=== PATIENT | male | born 1945 | race African-American/Black ===

== ENCOUNTER 2016-04-10 16:49 | Emergency (ER) | payer BC, MEDICARE ==
[2016-04-10] MEDS ORDERED: HYDROCODONE/ACETAMINOPHEN 5-325 MG TABLET PO ONE (17:40)
--- NOTE | 2016-04-10 17:44 | ER Document Report ---
ED Medical Screen (RME) - General Stated Complaint: FLANK PAIN Mode of Arrival: Ambulatory Information source: Patient Notes: 70-year-old male presents to the emergency department complaining of left flank/ left lower abdominal pain with associated hematuria. Reports history of multiple (approximately 20) kidney stones in the past. Reports associated nausea when pain is at its worse. I have greeted and performed a rapid initial assessment of this patient. A comprehensive ED assessment and evaluation of the patient, analysis of test results and completion of the medical decision making process will be conducted by additional ED providers. - Related Data Allergies/Adverse Reactions: No Known Allergies Allergy (Verified 09/17/11 12:19) Past Medical History - Social History Frequency of alcohol use: None Drug Abuse: None - Past Medical History Cardiac Medical History: Reports: Hx Hypertension - controlled without meds Renal/ Medical History: Reports: Hx Kidney Stones. Denies: Hx Peritoneal Dialysis Past Surgical History: Reports: Hx Kidney (Renal Surgery) - kidney stones removed - Immunizations Hx Diphtheria, Pertussis, Tetanus Vaccination: Yes Physical Exam - Vital signs Vitals: Temp Pulse Resp BP Pulse Ox 98.0 F 72 15 165/86 H 98 04/10/16 17:34 04/10/16 17:34 04/10/16 17:34 04/10/16 17:34 04/10/16 17:34 - General General appearance: Alert In distress: None - Respiratory Respiratory status: No respiratory distress Course - Vital Signs Vital signs: Temp Pulse Resp BP Pulse Ox 98.0 F 72 15 165/86 H 98 04/10/16 17:34 04/10/16 17:34 04/10/16 17:34 04/10/16 17:34 04/10/16 17:34
[2016-04-10 18:05] LABS: APPEARANCE,URINE SLIGHTLY-CLOUDY; BILIRUBIN,URINE NEGATIVE (NEGATIVE); GLUCOSE, URINE NEGATIVE (NEGATIVE); KETONES,URINE NEGATIVE (NEGATIVE); LEUKOCYTE ESTERASE,URINE NEGATIVE (NEGATIVE); NITRITE,URINE NEGATIVE (NEGATIVE); PROTEIN,URINE 30 mg/dL (NEGATIVE); URINE SPECIFIC GRAVITY 1.023; UROBILINOGEN,URINE NEGATIVE mg/dL (<2.0)
[2016-04-10 18:08] LABS: ABSOLUTE EOSINOPHILS # (AUTO) 0.1 10^3/uL (0.0-0.6); ABSOLUTE LYMPHOCYTES (AUTO) 0.5 10^3/uL (0.5-4.7); ABSOLUTE MONOCYTES (AUTO) 0.3 10^3/uL (0.1-1.4); ABSOLUTE NEUT (AUTO) 3.4 10^3/uL (1.7-8.2); BASOPHILS % (AUTO) 0.6 % (0-2); EOSINOPHILS % (AUTO) 2.7 % (0-6); HEMATOCRIT 42.7 % (37.9-51.0); HEMOGLOBIN 13.9 g/dL (13.5-17.0); LYMPHOCYTES % (AUTO) 11.8 % (13-45); MEAN CORPUSCULAR HEMOGLOBIN 28.4 pg (27.0-33.4); MEAN CORPUSCULAR HGB CONC 32.6 g/dL (32.0-36.0); MEAN CORPUSCULAR VOLUME 87 fl (80-97); MONOCYTES % (AUTO) 7.6 % (3-13); RED CELL DISTRIBUTION WIDTH 13.9 % (11.5-14.0); SEGMENTED NEUTROPHILS % (AUTO) 77.3 % (42-78); WHITE BLOOD COUNT 4.5 10^3/uL (4.0-10.5)
[2016-04-10 18:18] LABS: ALANINE AMINOTRANSFERASE 26 U/L (21-72); ALBUMIN 4.5 g/dL (3.5-5.0); ALKALINE PHOSPHATASE 56 U/L (38-126); ANION GAP 11 (5-19); ASPARTATE AMINO TRANSFERASE 20 U/L (17-59); BLOOD UREA NITROGEN 23 mg/dL (7-20); CALCIUM 9.9 mg/dL (8.4-10.2); CARBON DIOXIDE 31 mmol/L (22-30); CHLORIDE 101 mmol/L (98-107); CREATININE RESULT 1.13 mg/dL (0.52-1.25); GLUCOSE 118 mg/dL (75-110); LIPASE 37.9 U/L (23-300); POTASSIUM 4.3 mmol/L (3.6-5.0); TOTAL PROTEIN 7.7 g/dL (6.3-8.2)
[2016-04-10] MEDS ORDERED: NORMAL SALINE 1000 ML 1,000 ML IV PRN (20:36)
[2016-04-10] MEDS ORDERED: KETOROLAC TROMETHAMINE INJ/PF 30 MG/1 ML SDV IV ONE (20:36)
[2016-04-10] MEDS ORDERED: TAMSULOSIN HCL 0.4 MG CAP.SR.24H PO ONE (20:36)
[2016-04-10] MEDS ORDERED: ONDANSETRON HCL INJ/PF 4 MG/2 ML SDV IV ONE (20:36)
--- NOTE | 2016-04-10 20:42 | ER Document Report ---
ED GI/ - General Chief Complaint: Flank Pain Stated Complaint: FLANK PAIN Time seen by provider: 20:38 Mode of Arrival: Ambulatory Information source: Patient - HPI Patient complains to provider of: Flank pain Onset: This afternoon Timing/Duration: Sudden Quality of pain: Sharp, Stabbing Severity at maximum: Moderate Severity in ED: Moderate Pain Level: 3 Location: Left flank Associated symptoms: Hematuria, Nausea Exacerbated by: Denies Relieved by: Denies Similar symptoms previously: Yes Recently seen / treated by doctor: No Notes: 04/10/16 20:39 Patient is a 70-year-old male presenting to the emergency room complaining of left flank pain that's sharp and stabbing in nature and started around 2 PM today, associated with hematuria and some nausea, patient denies any fever, no vomiting or diarrhea, had 2 normal bowel movements today, denies any dysuria, states symptoms are consistent with kidney stones he's had in the past, states she's had multiple uric acid stones in the past, required 2 previous procedures to assist in stone passage, otherwise he is past most of them without difficulty - Related Data Allergies/Adverse Reactions: No Known Allergies Allergy (Verified 09/17/11 12:19) Past Medical History - General Information source: Patient - Social History Smoking Status: Never Smoker Frequency of alcohol use: None Drug Abuse: None Family History: Reviewed & Not Pertinent Patient has suicidal ideation: No Patient has homicidal ideation: No - Past Medical History Cardiac Medical History: Reports: Hx Hypertension - controlled without meds Renal/ Medical History: Reports: Hx Kidney Stones. Denies: Hx Peritoneal Dialysis Past Surgical History: Reports: Hx Kidney (Renal Surgery) - kidney stones removed - Immunizations Hx Diphtheria, Pertussis, Tetanus Vaccination: Yes Review of Systems - Review of Systems Constitutional: No symptoms reported EENT: No symptoms reported Cardiovascular: No symptoms reported Respiratory: No symptoms reported Gastrointestinal: Nausea. denies: Abdominal pain, Diarrhea, Vomiting Genitourinary: See HPI, Flank pain, Hematuria Male Genitourinary: No symptoms reported Musculoskeletal: No symptoms reported Skin: No symptoms reported Hematologic/Lymphatic: No symptoms reported Neurological/Psychological: No symptoms reported -: Yes All other systems reviewed and negative Physical Exam - Vital signs Vitals: Temp Pulse Resp BP Pulse Ox 98.0 F 72 15 165/86 H 98 04/10/16 17:34 04/10/16 17:34 04/10/16 17:34 04/10/16 17:34 04/10/16 17:34 Interpretation: Normal - General General appearance: Appears well, Alert - HEENT Head: Normocephalic, Atraumatic Eyes: Normal Pupils: PERRL - Respiratory Respiratory status: No respiratory distress Chest status: Nontender Breath sounds: Normal Chest palpation: Normal - Cardiovascular Rhythm: Regular Heart sounds: Normal auscultation Murmur: No - Abdominal Inspection: Normal Distension: No distension Bowel sounds: Normal Tenderness: Nontender Organomegaly: No organomegaly - Back Back: Normal, Nontender - Extremities General upper extremity: Normal inspection, Nontender, Normal color, Normal ROM , Normal temperature General lower extremity: Normal inspection, Nontender, Normal color, Normal ROM , Normal temperature, Normal weight bearing. No: Carina's sign - Neurological Neuro grossly intact: Yes Cognition: Normal Orientation: AAOx4 [place] Coma Scale Eye Opening: Spontaneous [place] Coma Scale Verbal: Oriented Shan Coma Scale Motor: Obeys Commands [place] Coma Scale Total: 15 Speech: Normal Motor strength normal: LUE, RUE, LLE, RLE Sensory: Normal - Psychological Associated symptoms: Normal affect, Normal mood - Skin Skin Temperature: Warm Skin Moisture: Dry Skin Color: Normal Course - Re-evaluation Re-evalutation: 04/10/16 22:19 Patient resting comfortably, does report moderate pain relief but is requesting additional pain medication prior to discharge, lab and imaging findings have been discussed with patient and at bedside which are consistent with left- sided ureteral stone, patient will be started on Flomax, provided with pain and nausea medication and advised to follow-up with his urologist in the next week, otherwise return to emergency room if symptoms worsen, patient acknowledges understanding and agreement with this plan - Vital Signs Vital signs: Temp Pulse Resp BP Pulse Ox 98.0 F 72 15 165/86 H 98 04/10/16 17:34 04/10/16 17:34 04/10/16 17:34 04/10/16 17:34 04/10/16 17:34 - Laboratory Result Diagrams: 04/10/16 17:45 04/10/16 17:45 Laboratory results interpreted by me: 04/10/16 04/10/16 04/10/16 17:45 17:45 17:45 Lymphocytes % 11.8 L Carbon Dioxide 31 H BUN 23 H Glucose 118 H Urine Protein 30 H Urine Blood LARGE H - Diagnostic Test Radiology reviewed: Image reviewed, Reports reviewed Discharge - Discharge Clinical Impression: Kidney stone on left side Condition: Stable Disposition: HOME, SELF-CARE Instructions: Kidney Stone ([facility]) Additional Instructions: Follow up with your primary care provider and your urologist in one to 2 days. Return to the emergency room immediately if symptoms worsen or any additional concerns. Prescriptions: Ondansetron [Zofran Odt 4 mg Tablet] 1 - 2 tab PO Q4H #10 tab.rapdis Oxycodone HCl/Acetaminophen [Percocet 5-325 mg Tablet] 1 - 2 tab PO ASDIR PRN # 15 tablet PRN Reason: Tamsulosin HCl [Flomax 0.4 mg Cap.sr] 0.4 mg PO DAILY #7 cap.sr.24h
[2016-04-10] MEDS ORDERED: ONDANSETRON ODT 4 MG TAB (6 TAB/DSPK) PO PRN (22:21)
[2016-04-10] MEDS ORDERED: HYDROCODONE/ACETAMINOPHEN 5-325 MG 6 TAB/DSPK PO PRN (22:21)
[2016-04-10] MEDS ORDERED: MORPHINE SULFATE 10 MG/ML INJ IV ONE (22:21)
[2016-04-10 22:53] VITALS: BP 162/80
== END 2016-04-10 22:51 | disposition home or self-care (01) ==
LOC: ER 16:49
DX: N13.2 Hydronephrosis with renal and ureteral calculous obstruction (principal); R11.0 Nausea; R31.9 Hematuria, unspecified; R10.9 Unspecified abdominal pain; I10 Essential (primary) hypertension; Z98.890 Other specified postprocedural states
CPT/HCPCS: 99284; 96361; 96374; 96375; 36415; 83690; 85025; 80053; 81001; 76380; J1885; J2270; A9270 ×4; J2405; J7030

== ENCOUNTER → 2016-06-13 | Outpatient (CLI) | payer MEDICARE | LOC: RAD 08:55 | PROVIDERS: ATTEND Urology | DX: N20.0 Calculus of kidney (principal); N28.1 Cyst of kidney, acquired | CPT/HCPCS: 76770 ==

== ENCOUNTER 2018-10-07 15:54 | Emergency (ER) | payer MEDICARE ==
--- NOTE | 2018-10-07 17:21 | ER Document Report ---
ED Medical Screen (RME) - General Chief Complaint: Heat Exposure Stated Complaint: HEAT EXPOSURE Time Seen by Provider: 10/07/18 17:17 Primary Care Provider: ATUL ERNANDEZ MD [Primary Care Provider] - Follow up as needed Notes: 73-year-old overall healthy male with hypertension presents to the emergency department with chief complaint of passing out after working in the heat all morning. Patient states he remembers feeling woozy and was sitting on the back of discharge drinking water when he when he fell back into a cooler that was there but did not strike his head. Patient came to after his family put a cold towel over him and continue to drink water. Currently patient feels fine and is asymptomatic. I have greeted and performed a rapid initial assessment of this patient. A comprehensive ED assessment and evaluation of the patient, analysis of test results and completion of medical decision making process will be conducted by an additional ED providers. TRAVEL OUTSIDE OF THE [place] IN LAST 30 DAYS: No - Related Data Allergies/Adverse Reactions: No Known Allergies Allergy (Verified 10/07/18 15:55) Past Medical History - Social History Chew tobacco use (# tins/day): No Frequency of alcohol use: None Drug Abuse: None - Past Medical History Cardiac Medical History: Reports: Hx Hypertension - controlled without meds Renal/ Medical History: Reports: Hx Kidney Stones. Denies: Hx Peritoneal Dialysis Past Surgical History: Reports: Hx Kidney (Renal Surgery) - kidney stones removed - Immunizations Hx Diphtheria, Pertussis, Tetanus Vaccination: Yes Physical Exam - Vital signs Vitals: Temp Pulse Resp BP Pulse Ox 97.9 F 91 18 145/70 H 95 10/07/18 16:00 10/07/18 16:00 10/07/18 16:00 10/07/18 16:00 10/07/18 16:00 - Notes Notes: PHYSICAL EXAMINATION: Reviewed vital signs and charting by RN GENERAL: Alert, interacts well. No acute distress. HEAD: Normocephalic, atraumatic. EYES: Pupils equal and round. Extraocular movements intact. ENT: Oral mucosa moist, tongue midline. NECK: Full range of motion. Trachea midline. LUNGS: Clear to auscultation bilaterally, no wheezes, rales, or rhonchi. No respiratory distress. HEART: Regular rate and rhythm. No murmur ABDOMEN: soft, non-tender. No distention. Bowel sounds present EXTREMITIES: Moves all 4 extremities spontaneously. No edema, No cyanosis. NEURO: A &O X 3, normal speech, PERRL, EOMI, SILT, follows commands in all 4 extremities, no gross abnormalities of cranial nerves, no focal neuro deficits, box toe buffer strength 5/5 bilateral, 5/5 strength in both proximal and distal upper and lower extremities PSYCH: Normal affect, normal mood. SKIN: Warm, dry, normal turgor. No rashes or lesions noted. Course - Vital Signs Vital signs: Temp Pulse Resp BP Pulse Ox 97.9 F 91 18 145/70 H 95 10/07/18 16:00 10/07/18 16:00 10/07/18 16:00 10/07/18 16:00 10/07/18 16:00 Doctor's Discharge - Discharge Referrals: ATUL ERNANDEZ MD [Primary Care Provider] - Follow up as needed
[2018-10-07 18:13] LABS: APPEARANCE,URINE SLIGHTLY-CLOUDY; BILIRUBIN,URINE NEGATIVE (NEGATIVE); COLOR,URINE YELLOW; GLUCOSE, URINE NEGATIVE (NEGATIVE); KETONES,URINE NEGATIVE (NEGATIVE); LEUKOCYTE ESTERASE,URINE NEGATIVE (NEGATIVE); NITRITE,URINE NEGATIVE (NEGATIVE); PROTEIN,URINE NEGATIVE (NEGATIVE); URINE SPECIFIC GRAVITY 1.017; UROBILINOGEN,URINE NEGATIVE mg/dL (<2.0)
[2018-10-07 18:47] LABS: ANION GAP 10 (5-19); BLOOD UREA NITROGEN 28 mg/dL (7-20); CARBON DIOXIDE 27 mmol/L (22-30); CHLORIDE 102 mmol/L (98-107); GLUCOSE 115 mg/dL (75-110); POTASSIUM 4.4 mmol/L (3.6-5.0); SODIUM 138.7 mmol/L (137-145)
--- NOTE | 2018-10-07 19:21 | ER Document Report ---
ED General - General Chief Complaint: Heat Exposure Stated Complaint: HEAT EXPOSURE Time Seen by Provider: 10/07/18 17:17 Primary Care Provider: ATUL ERNANDEZ MD [NO LOCAL MD] - Follow up as needed Notes: 73-year-old overall healthy male with hypertension presents to the emergency department with chief complaint of passing out after working in the heat all morning. Patient states he remembers feeling woozy and was sitting on the back of discharge drinking water when he when he fell back into a cooler that was th ere but did not strike his head. Patient came to after his family put a cold towel over him and continue to drink water. Currently patient feels fine and is asymptomatic. Denies dizziness/lightheadedness/weakness, denies nausea or vomiting, denies abdominal pain or diarrhea, denies rapid heartbeat or chest pain, denies shortness of breath. TRAVEL OUTSIDE OF THE [place] IN LAST 30 DAYS: No - Related Data Allergies/Adverse Reactions: No Known Allergies Allergy (Verified 10/07/18 15:55) Past Medical History - Social History Smoking Status: Never Smoker Chew tobacco use (# tins/day): No Frequency of alcohol use: None Drug Abuse: None Family History: Reviewed & Not Pertinent Patient has suicidal ideation: No Patient has homicidal ideation: No - Past Medical History Cardiac Medical History: Reports: Hx Hypertension - controlled without meds Renal/ Medical History: Reports: Hx Kidney Stones. Denies: Hx Peritoneal Dialysis Past Surgical History: Reports: Hx Kidney (Renal Surgery) - kidney stones removed - Immunizations Hx Diphtheria, Pertussis, Tetanus Vaccination: Yes Review of Systems - Review of Systems Constitutional: See HPI EENT: No symptoms reported Cardiovascular: See HPI Respiratory: See HPI Gastrointestinal: See HPI Genitourinary: No symptoms reported Male Genitourinary: No symptoms reported Musculoskeletal: No symptoms reported Skin: No symptoms reported Hematologic/Lymphatic: No symptoms reported Neurological/Psychological: See HPI Physical Exam - Vital signs Vitals: Temp Pulse Resp BP Pulse Ox 97.9 F 91 18 145/70 H 95 10/07/18 16:00 10/07/18 16:00 10/07/18 16:00 10/07/18 16:00 10/07/18 16:00 - Notes Notes: PHYSICAL EXAMINATION: Reviewed vital signs and charting by RN GENERAL: Alert, interacts well. No acute distress. HEAD: Normocephalic, atraumatic. EYES: Pupils equal and round. Extraocular movements intact. ENT: Oral mucosa moist, tongue midline. NECK: Full range of motion. Trachea midline. LUNGS: Clear to auscultation bilaterally, no wheezes, rales, or rhonchi. No respiratory distress. HEART: Regular rate and rhythm. No murmur ABDOMEN: soft, non-tender. No distention. Bowel sounds present EXTREMITIES: Moves all 4 extremities spontaneously. No edema, No cyanosis. PSYCH: Normal affect, normal mood. SKIN: Warm, dry, normal turgor. No rashes or lesions noted. Course - Re-evaluation Re-evalutation: 10/07/18 19:22 Overall well-appearing and asymptomatic. Urinalysis has no ketones in it and no gross abnormalities with electrolytes. Patient does have elevated creatinine but unclear if this is acute versus chronic. Patient's urine was clear so I suspect this is chronic. I gave patient strict return precautions and he is stable for discharge. Vital signs within normal limits - Vital Signs Vital signs: Temp Pulse Resp BP Pulse Ox 97.9 F 91 18 145/70 H 95 10/07/18 16:00 10/07/18 16:00 10/07/18 16:00 10/07/18 16:00 10/07/18 16:00 - Laboratory Result Diagrams: 10/07/18 18:14 Laboratory results interpreted by me: 10/07/18 18:14 BUN 28 H Creatinine 1.26 H Est GFR (Non-Af Amer) 56 L Glucose 115 H Discharge - Discharge Clinical Impression: Mild dehydration Condition: Good Disposition: HOME, SELF-CARE Additional Instructions: You are seen the emergency department this evening for mild dehydration. Your urine and lab work looked good and there is no lab evidence that you are dehydrated. Because her symptoms have resolved and is reassuring. Please continue to drink water and stay hydrated. Please try to limit your exposure to the heat outside. If you develop dizziness, lightheadedness, acute shortness of breath or chest pain, you pass out, or you have any other concerning symptoms please merely return to the emergency department. Referrals: ATUL ERNANDEZ MD [NO LOCAL MD] - Follow up as needed
[2018-10-07 19:32] VITALS: BP 124/72
== END 2018-10-07 19:34 | disposition home or self-care (01) ==
LOC: ER 15:54
DX: E86.0 Dehydration (principal); I10 Essential (primary) hypertension; Z87.442 Personal history of urinary calculi
CPT/HCPCS: 36415; 80048; 81001; 99284